=== PATIENT | female | born 1995 | race Caucasian/White ===

== ENCOUNTER 2016-08-31 21:53 | Emergency (ER) | payer OTHER ==
[~2016-08-31] VITALS: Ht 157.5 cm; Wt 80.0 kg
[~2016-08-31 21:53] MED LIST: CEPH-443 PO
[2016-08-31 21:58] VITALS: Ht 157.5 cm; Wt 80.0 kg
[2016-08-31] MEDS ORDERED: AMO500 PO (22:10)
--- NOTE | 2016-08-31 22:13 | ERD ---
ER Documentation Chief Complaint Date/Time DATE: 08/31/16 TIME: 22:11 Chief Complaint sore throat x 1 day HPI This is a 21-year-old female who presents with sore throat that began today. She has mild to moderate pain with swallowing. Denies fever. Denies any difficulty eating drinking or swallowing. Denies any cough. Denies any chest pain or shortness of breath. She has not had any medication for this. She has no other complaints. ROS All systems reviewed and are negative except as per history of present illness. Medications Home Meds Active Scripts Amoxicillin* (Amoxicillin*) 500 Mg Cap, 500 MG PO BID, #14 CAP Prov:ELROY WILKINSON PA-C 08/31/16 Cephalexin* (Keflex*) 500 Mg Capsule, 500 MG PO QID for 5 Days, CAP Prov:EVELIA ROCHE PA-C 02/22/15 Allergies Allergies: Coded Allergies: No Known Allergy (Unverified , 12/06/14) PMhx/Soc History of Surgery: No Anesthesia Reaction: No Hx Neurological Disorder: No Hx Respiratory Disorders: No Hx Cardiac Disorders: No Hx Psychiatric Problems: No Hx Miscellaneous Medical Probl: No Hx Alcohol Use: No Hx Substance Use: No Hx Tobacco Use: No Smoking Status: Never smoker FmHx Family History: No diabetes Physical Exam Vitals Vital Signs Date Time Temp Pulse Resp B/P Pulse Ox O2 Delivery O2 Flow Rate FiO2 08/31/16 21:58 98.9 120 20 116/73 98 Physical Exam General: well developed, well nourished, alert, nontoxic, no distress Head: normocephalic, atraumatic Neck: Supple, nontender, no lymphadenopathy, no midline tenderness Oropharynx: Bilateral tonsilar erythema and edema withe xudates, uvula midline, no kissing tonsils Respiratory: Clear to auscaultation bilaterally, speaks in full sentences, no use of accesory muscles or labored breathing, no rales, ronchi, or wheezing Cardiovascular: RRR, No murmurs GI: soft, non tender, non distended, negative murphys sign, negative mcburneys point tenderness, no cva tenderness bilaterally, no rebound or guarding Procedures/MDM Patient presents with pharyngitis. I doubt peritonsillar abscess. She is well appaering in no distress, tolerating oral intake. discharged with amoxcillin. Recommended this patient follow up with her primary care doctor within 48 hours or return to the emergency room for any worsening of symptoms. However this time I do believe there is suitable for outpatient management. I answered all their questions and they agreed with the plan and were discharged home. Departure Diagnosis: Primary Impression: Pharyngitis, acute Condition: Stable Patient Instructions: Pharyngitis, Strep (Presumed) Additional Instructions: Call your primary care doctor TOMORROW for an appointment during the next 1-2 days.See the doctor sooner or return here if your condition worsens before your appointment time. ELROY WILKINSON PA-C Aug 31, 2016 22:13
== END 2016-08-31 22:27 | disposition home or self-care (01) ==
LOC: FTE 21:53
DX: J02.9 Acute pharyngitis, unspecified (principal)
CPT/HCPCS: 99283

== ENCOUNTER 2016-12-18 14:13 | Emergency (ER) | payer OTHER ==
[~2016-12-18] VITALS: Ht 152.4 cm; Wt 87.0 kg
[~2016-12-18 14:13] MED LIST changes: +AMOX500C2 PO
[2016-12-18 14:20] VITALS: Ht 152.4 cm; Wt 87.0 kg
[2016-12-18] MEDS ORDERED: CEPH-443 PO (16:18)
--- NOTE | 2016-12-18 16:23 | ERA ---
ER Documentation Chief Complaint Date/Time DATE: 12/18/16 TIME: 16:19 Chief Complaint lumps back neck HPI Otherwise healthy 21-year-old female presents with the chief complaints of painful lumps on the back of her neck 12-24 hours. Patient states that the lumps that started last night. Denies any fever, chills, nausea, vomiting, difficulty breathing, shortness of breath, dysphagia, odynophagia, or malaise. Patient has not taken any medication to relieve the symptoms. Denies any aggravating or alleviating factors. Patient has no other complaints and describes no other associated manifestations. Nursing notes have been reviewed and are consistent with history given. ROS All systems reviewed and are negative except as per history of present illness. Medications Home Meds Active Scripts Cephalexin* (Keflex*) 500 Mg Capsule, 500 MG PO QID for 5 Days, CAP Prov:VERONICA OLIVEIRA PA-C 12/18/16 Amoxicillin* (Amoxicillin*) 500 Mg Cap, 500 MG PO BID, #14 CAP Prov:ELROY WILKINSON PA-C 08/31/16 Cephalexin* (Keflex*) 500 Mg Capsule, 500 MG PO QID for 5 Days, CAP Prov:EVELIA ROCHE PA-C 02/22/15 Allergies Allergies: Coded Allergies: No Known Allergy (Unverified , 12/06/14) PMhx/Soc History of Surgery: Yes (C SECTION 07/25) Anesthesia Reaction: No Hx Neurological Disorder: No Hx Respiratory Disorders: Yes (ASTHMA) Hx Cardiac Disorders: No Hx Psychiatric Problems: No Hx Miscellaneous Medical Probl: No Hx Alcohol Use: No Hx Substance Use: No Hx Tobacco Use: No Smoking Status: Never smoker Physical Exam Vitals Vital Signs Date Time Temp Pulse Resp B/P Pulse Ox O2 Delivery O2 Flow Rate FiO2 12/18/16 14:20 99.0 87 2 124/70 99 Physical Exam Const: Overweight 21-year-old female in no acute distress Head: Atraumatic Eyes: Normal Conjunctiva ENT: Normal External Ears, Nose and Mouth. Neck: Limited range of motion turning to the left and right secondary to pain. Tenderness palpation next to the midline. No midline tenderness. 2-3 cm palpated nonfluctuant nodules 1-2 cm lateral to the spine bilaterally. Possible site of puncture wound from insect or other nonspecified cause visualized bilaterally. No goiter. ~ No meningismus. Resp: Clear to auscultation bilaterally Cardio: Regular rate and rhythm, no murmurs Abd: Soft, non tender, non distended. Normal bowel sounds Skin: Is noted neck exam Back: No midline or flank tenderness Ext: No cyanosis, or edema Neur: Awake and alert Psych: Normal Mood and Affect Procedures/MDM 21-year-old female presenting with a chief complaint of lumps that are tender on the back of the neck as described in history and physical examination. A consult to my attending Dr. Middleton who has evaluated the patient herself. Most likely diagnosis is cyst. Nonfluctuant. No incision and drainage needed at this time. Patient will be managed with outpatient Keflex. Patient has been recommended to take [id number] miconazole cream and ibuprofen. I have no suspicion for endangerment of the airway, meningitis, or other serious bacterial infection. I have spoke with the patient regarding their condition and future management. They have verbally responded that they understand their status and treatment plan. The patients vitals are stable, and their current condition is appropriate for discharge. The patient will be given discharge instructions with return precautions. Departure Diagnosis: Primary Impression: Cyst Condition: Stable Patient Instructions: Sebaceous Cyst, Infected (Abx Tx) Additional Instructions: Follow up with your PCP within the next 1-3 days for a more thorough evaluation and a possible referral to a specialist. Return the the emergency department immediately if symptoms worsen or change. If you have any questions regarding medications, ask your pharmacist or us before you leave. If any adverse reactions occur while taking your medications, discontinue the treatment and return to the emergency department immediately. Take your medications as directed, and complete the entire course of treatment. VERONICA OLIVEIRA PA-C Dec 18, 2016 16:23
== END 2016-12-18 16:46 | disposition home or self-care (01) ==
LOC: FTE 14:13
DX: L72.3 Sebaceous cyst (principal); J45.909 Unspecified asthma, uncomplicated
CPT/HCPCS: 99283

== ENCOUNTER 2018-09-16 01:25 | Emergency (ER) | payer OTHER ==
[~2018-09-16] VITALS: Ht 147.3 cm; Wt 82.0 kg
[2018-09-16 01:28] VITALS: Ht 147.3 cm; Wt 82.0 kg
== END 2018-09-16 03:15 | disposition left against medical advice (07) ==
LOC: FTE 01:25
DX: Z53.21 Procedure and treatment not carried out due to patient leaving prior to being seen by health care provider (principal)